=== PATIENT | male | born 1950 | race Caucasian/White ===

== ENCOUNTER 2016-09-18 13:32 | Outpatient (RCR) | payer MEDICARE, OTHER ==
[~2016-09-18 13:32] MED LIST: ADULT LOW DOSE81 MG PO; BRIMONIDINE TAR15 ML OP; SIMVASTATIN20 M1 PO
== END 2016-12-17 | disposition still patient (30) ==
LOC: CARDREHAB 13:32
DX: Z51.89 Encounter for other specified aftercare (principal); I21.4 Non-ST elevation (NSTEMI) myocardial infarction

== ENCOUNTER 2017-07-06 16:35 | Observation (INO) | payer MEDICARE, OTHER ==
[~2017-07-06] VITALS: Ht 170.2 cm; Wt 45.5 kg
[2017-07-06 20:18] VITALS: BP 91/48
[2017-07-06 20:28] VITALS: BP 103/69
[2017-07-06 22:36] VITALS: BP 117/83
[2017-07-07 02:17] VITALS: BP 127/74
[2017-07-07 18:04] VITALS: BP 105/54
[2017-07-08 06:04] VITALS: BP 115/68
[2017-07-08] MEDS ORDERED: DURAGESIC1 EAC1 TD (14:07)
[2017-07-08] MEDS ORDERED: ZOFRAN ODT8 M1 PO (14:08)
[2017-07-08] MEDS ORDERED: MORPHINE S100 MG/5 M PO (14:11)
[2017-07-08 14:35] VITALS: BP 115/68
== END 2017-07-08 15:42 | disposition hospice, inpatient (51) ==
LOC: ED 16:35 → MED/SURG 19:44
PROVIDERS: ADMIT Family Medicine
DX: C78.7 Secondary malignant neoplasm of liver and intrahepatic bile duct (principal); G89.3 Neoplasm related pain (acute) (chronic); C80.1 Malignant (primary) neoplasm, unspecified; Z51.5 Encounter for palliative care; R10.13 Epigastric pain; R10.11 Right upper quadrant pain; R07.89 Other chest pain; E78.5 Hyperlipidemia, unspecified; I25.2 Old myocardial infarction; I25.10 Atherosclerotic heart disease of native coronary artery without angina pectoris; I73.9 Peripheral vascular disease, unspecified; R91.8 Other nonspecific abnormal finding of lung field; R59.0 Localized enlarged lymph nodes; E46 Unspecified protein-calorie malnutrition; K21.9 Gastro-esophageal reflux disease without esophagitis; R13.10 Dysphagia, unspecified; Z86.73 Personal history of transient ischemic attack (TIA), and cerebral infarction without residual deficits
CPT/HCPCS: C9113; G0378; J3010; J7030; Q9967